=== PATIENT | female | born 1990 | race Two or more races ===

== ENCOUNTER → 2022-07-08 | Outpatient (CLI) | payer MEDICAID ==
[2022-07-08 07:16] LABS: Basophils # (auto) 0.1 10 ^3/uL (0-0.2); Basophils % (auto) 0.7 % (0.0-2.0); Eosinophils # (auto) 0.2 10 ^3/uL (0-0.8); Hematocrit 38.6 % (36.0-46.0); Hemoglobin 13.2 g/dL (12.2-16.2); Lymphocytes # (auto) 3.1 10 ^3/uL (0.4-5.4); Lymphocytes % (auto) 35.2 % (10.0-50.0); Mean Corpuscular Hemoglobin 29.9 pg (28.0-32.0); Mean Corpuscular Hgb Conc. 34.1 g/dL (32.0-36.0); Mean Corpuscular Volume 87.7 fL (80.0-100.0); Monocytes # (auto) 0.4 10 ^3/uL (0-1.3); Monocytes % (auto) 4.4 % (0.0-12.0); Neutrophils % (auto) 57.7 % (37.0-80.0); Red Cell Distribution Width 13.8 % (11.8-14.3); White Blood Cell 8.7 10^3/uL (4.4-10.8)
[2022-07-08 07:42] LABS: Albumin 3.2 g/dL (3.4-5.0); Calcium 8.2 mg/dL (8.5-10.1)
[2022-07-08 07:47] LABS: BUN/Creatinine Ratio 9.7; Bilirubin, Total 0.3 mg/dL (0.2-1.0); Total Protein 7.1 g/dL (6.4-8.2)
[2022-07-09 06:06] LABS: RPR Non Reactive (Non Reactive)
== END | disposition home or self-care (01) ==
LOC: LAB 06:57
PROVIDERS: ATTEND Internal Medicine
DX: Z00.00 Encounter for general adult medical examination without abnormal findings (principal); Z20.2 Contact with and (suspected) exposure to infections with a predominantly sexual mode of transmission; Z83.3 Family history of diabetes mellitus
CPT/HCPCS: 36415; 80053; 80061; 83036; 84439; 84443; 85025; 86592; 86703; 86704; 86706; 86708; 86803; 87340

== ENCOUNTER 2023-07-08 06:17 | Emergency (ER) | payer MEDICAID ==
[~2023-07-08] VITALS: Ht 160 cm; Wt 82.5 kg
[2023-07-08 07:37] VITALS: BP 114/56; PULSE 77; RESP 16; TEMP 98.3; O2SAT 98
[2023-07-08 07:58] LABS: Basophils # (auto) 0.1 10 ^3/uL (0-0.2); Basophils % (auto) 0.6 % (0.0-2.0); Eosinophils # (auto) 0.5 10 ^3/uL (0-0.8); Hematocrit 38.3 % (36.0-46.0); Hemoglobin 12.8 g/dL (12.2-16.2); Lymphocytes # (auto) 2.6 10 ^3/uL (0.4-5.4); Lymphocytes % (auto) 28.1 % (10.0-50.0); Mean Corpuscular Hemoglobin 29.9 pg (28.0-32.0); Mean Corpuscular Hgb Conc. 33.6 g/dL (32.0-36.0); Monocytes # (auto) 0.6 10 ^3/uL (0-1.3); Monocytes % (auto) 6.1 % (0.0-12.0); Neutrophils # (auto) 5.4 10 ^3/uL (1.6-8.6); Neutrophils % (auto) 59.2 % (37.0-80.0); Red Cell Distribution Width 13.9 % (11.8-14.3); White Blood Cell 9.1 10^3/uL (4.4-10.8)
== END 2023-07-08 09:24 | disposition home or self-care (01) ==
LOC: ER 06:17
DX: O20.0 Threatened abortion (principal); R10.2 Pelvic and perineal pain; Z3A.09 9 weeks gestation of pregnancy; Z88.0 Allergy status to penicillin; Z88.1 Allergy status to other antibiotic agents
CPT/HCPCS: 36415; 76801; 84702; 85025

== ENCOUNTER 2023-11-25 23:57 | Observation (INO) | payer MEDICAID ==
[~2023-11-25] VITALS: Ht 160 cm; Wt 90.3 kg
[~2023-11-25 23:57] MED LIST: ACET-1304 PO; AZIT500T66 PO; DEXTSYP31 OR; PREN-96 OR
== END 2023-11-26 04:06 | disposition home or self-care (01) ==
LOC: LDRP 23:57
PROVIDERS: ADMIT Obstetrics & Gynecology; ATTEND Obstetrics & Gynecology
DX: O36.8130 Decreased fetal movements, third trimester, not applicable or unspecified (principal); O32.1XX0 Maternal care for breech presentation, not applicable or unspecified; O99.333 Smoking (tobacco) complicating pregnancy, third trimester; F17.210 Nicotine dependence, cigarettes, uncomplicated; Z3A.29 29 weeks gestation of pregnancy; Z88.0 Allergy status to penicillin
CPT/HCPCS: 59025; 76815; 81002; G0378

== ENCOUNTER 2023-12-26 12:00 | Observation (INO) | payer MEDICAID | END 2023-12-26 14:21 | disposition home or self-care (01) | LOC: LDRP 12:00 → UNDOADMOB 12:00 → LDRP 12:49 | PROVIDERS: ADMIT Obstetrics & Gynecology; ATTEND Obstetrics & Gynecology | DX: O24.419 Gestational diabetes mellitus in pregnancy, unspecified control (principal); O99.333 Smoking (tobacco) complicating pregnancy, third trimester; F17.210 Nicotine dependence, cigarettes, uncomplicated; Z3A.33 33 weeks gestation of pregnancy; Z88.0 Allergy status to penicillin | CPT/HCPCS: 59025; 76818; 81002; 82948; 94760; G0378 ==

== ENCOUNTER 2024-01-02 12:26 | Observation (INO) | payer MEDICAID ==
[~2024-01-02 12:26] MED LIST changes: -ACET-1304 PO; -AZIT500T66 PO; -DEXTSYP31 OR
== END 2024-01-02 14:44 | disposition home or self-care (01) ==
LOC: UNDOADMOB 12:26 → LDRP 12:26
PROVIDERS: ADMIT Obstetrics & Gynecology; ATTEND Obstetrics & Gynecology
DX: O24.419 Gestational diabetes mellitus in pregnancy, unspecified control (principal); O99.333 Smoking (tobacco) complicating pregnancy, third trimester; F17.210 Nicotine dependence, cigarettes, uncomplicated; Z3A.34 34 weeks gestation of pregnancy; Z88.0 Allergy status to penicillin
CPT/HCPCS: 59025; 76818; 81002; 82948; 82962; 94760; G0378

== ENCOUNTER 2024-01-09 10:23 | Observation (INO) | payer MEDICAID ==
[~2024-01-09] VITALS: Ht 160 cm; Wt 92.1 kg
[2024-01-09] MEDS: NIFEdipine 10 MG CAP PO ONE (12:41)
[2024-01-09] MEDS ORDERED: NIF10C PO (13:43)
[2024-01-10 08:06] LABS: RPR Non Reactive (Non Reactive)
[2024-01-10 10:07] LABS: Treponema Pallidum Ab LC Non Reactive (Non Reactive)
[2024-01-10 20:06] LABS: Chlamydia Trachomatis, NAA Negative (Negative); Neisseria gonorrhoeae, NAA Negative (Negative)
== END 2024-01-09 14:00 | disposition home or self-care (01) ==
LOC: UNDOADMOB 10:23 → LDRP 10:23
PROVIDERS: ADMIT Obstetrics & Gynecology; ATTEND Obstetrics & Gynecology
DX: O24.419 Gestational diabetes mellitus in pregnancy, unspecified control (principal); O60.03 Preterm labor without delivery, third trimester; O99.333 Smoking (tobacco) complicating pregnancy, third trimester; F17.210 Nicotine dependence, cigarettes, uncomplicated; Z3A.35 35 weeks gestation of pregnancy; Z79.899 Other long term (current) drug therapy; Z88.0 Allergy status to penicillin
CPT/HCPCS: 59025; 76818; 81002; 82948; 84112; 86592; 86703; 87491; 87591; 94760; G0378

== ENCOUNTER 2024-01-10 17:11 | Observation (INO) | payer MEDICAID ==
[~2024-01-10 17:11] MED LIST changes: +NIF10C PO
[2024-02-06] MEDS ORDERED: IBU600T PO (03:37)
== END 2024-01-23 12:11 | disposition home or self-care (01) ==
LOC: LDRP 17:11 → UNDOADMOB 17:11 → LDRP 01-23 10:44 → UNDOADMOB 01-23 10:44 → LDRP 01-23 11:00 → UNDODISOB 01-23 12:11
PROVIDERS: ADMIT Obstetrics & Gynecology; ATTEND Obstetrics & Gynecology
DX: O24.419 Gestational diabetes mellitus in pregnancy, unspecified control (principal); Z3A.37 37 weeks gestation of pregnancy
CPT/HCPCS: 59025; 76818; 81002; 82948; 82962; 94760; G0378

== ENCOUNTER 2024-01-10 17:41 | Emergency (ER) | payer MEDICAID ==
[~2024-01-10] VITALS: Ht 160 cm; Wt 94.5 kg
[2024-01-10 19:31] LABS: Urine Bacteria FEW /hpf (None Seen); Urine Blood Negative /uL (Negative); Urine Clarity Clear (Clear); Urine Color Light-Yellow (Yellow); Urine Protein, UAD Negative (Negative); Urine Urobilinogen Normal (Negative); Urine WBC 2 /hpf (0 - 5); Urine pH 6.5 (5.0-9.0)
[2024-01-10 19:40] LABS: Chloride 108 mmol/L (98-107); Potassium 3.7 mmol/L (3.5-5.1); Sodium 138 mmol/L (136-145)
[2024-01-10 19:41] LABS: Anion Gap 7 (5-15); Carbon Dioxide 23 mmol/L (20-30)
[2024-01-10 19:46] LABS: Glucose 85 mg/dL (74-106)
[2024-01-10 19:51] LABS: Blood Urea Nitrogen < 5 mg/dL (9-23)
[2024-01-10 20:47] VITALS: BP 109/63; PULSE 96; RESP 18; TEMP 98.9; O2SAT 98
== END 2024-01-10 20:47 | disposition home or self-care (01) ==
LOC: ER 17:41
DX: R20.2 Paresthesia of skin (principal); R51.9 Headache, unspecified; Z88.0 Allergy status to penicillin; Z88.1 Allergy status to other antibiotic agents
CPT/HCPCS: 36415; 80048; 81001

== ENCOUNTER 2024-01-11 22:09 | Observation (INO) | payer MEDICAID | END 2024-01-11 23:33 | disposition home or self-care (01) | LOC: LDRP 22:09 | PROVIDERS: ADMIT Obstetrics & Gynecology; ATTEND Obstetrics & Gynecology | DX: O62.9 Abnormality of forces of labor, unspecified (principal); O21.2 Late vomiting of pregnancy; Z3A.35 35 weeks gestation of pregnancy; Z88.0 Allergy status to penicillin; Z79.899 Other long term (current) drug therapy | CPT/HCPCS: 59025; 81002; 82962; 94760; G0378 ==

== ENCOUNTER 2024-01-15 19:07 | Observation (INO) | payer MEDICAID | END 2024-01-15 20:37 | disposition home or self-care (01) | LOC: LDRP 19:07 | PROVIDERS: ADMIT Obstetrics & Gynecology; ATTEND Obstetrics & Gynecology | DX: O24.419 Gestational diabetes mellitus in pregnancy, unspecified control (principal); Z3A.36 36 weeks gestation of pregnancy; Z88.0 Allergy status to penicillin | CPT/HCPCS: 59025; 76818; 81002; 82948; 82962; 94760; G0378 ==

== ENCOUNTER 2024-01-30 01:21 | Inpatient (IN) | payer MEDICAID | END 2024-01-30 03:42 | disposition home or self-care (01) | DRG 566 | LOC: LDRP 01:21 | PROVIDERS: ADMIT Obstetrics & Gynecology; ATTEND Obstetrics & Gynecology | DX: O47.1 False labor at or after 37 completed weeks of gestation (principal); O24.419 Gestational diabetes mellitus in pregnancy, unspecified control; Z3A.38 38 weeks gestation of pregnancy | CPT/HCPCS: 59025; 76818; 81002; 82948; 82962; 94760; G0378 ==